=== PATIENT | male | born 1940 | race Caucasian/White ===

== ENCOUNTER 2017-01-10 09:24 | Outpatient (CLI) | payer MEDICARE, OTHER | END 2017-01-10 09:25 | disposition home or self-care (01) | DX: I10 Essential (primary) hypertension (principal); Z12.5 Encounter for screening for malignant neoplasm of prostate; E78.5 Hyperlipidemia, unspecified | CPT/HCPCS: 36415; 80053; 80061; G0103 ==

== ENCOUNTER 2017-04-09 08:14 | Outpatient (CLI) | payer MEDICARE, OTHER | END 2017-04-09 08:15 | disposition home or self-care (01) | DX: N28.9 Disorder of kidney and ureter, unspecified (principal) ==

== ENCOUNTER 2018-04-08 10:16 | Outpatient (CLI) | payer MEDICARE, OTHER ==
--- NOTE | 2018-04-08 10:55 | XRAY Report ---
THREE-VIEW BILATERAL HANDS: 04/08/2018 CLINICAL INDICATION: Bilateral pain. FINDINGS: AP, lateral and oblique views of the bilateral hands demonstrate osteoarthritic changes, with erosive characteristics, worst in the distal interphalangeal joint of the right middle finger. There is a flexion deformity of the left ring finger. There is no evidence of acute fracture. No radiopaque foreign body is seen in the soft tissues. IMPRESSION: EROSIVE OSTEOARTHRITIS. TD: 04/08/2018 10:54
== END 2018-04-08 10:17 | disposition home or self-care (01) ==
LOC: DI.S 10:16
PROVIDERS: ATTEND Nurse Practitioner Family
DX: M79.643 Pain in unspecified hand (principal); M15.4 Erosive (osteo)arthritis; I10 Essential (primary) hypertension; E78.5 Hyperlipidemia, unspecified; R73.09 Other abnormal glucose; Z12.5 Encounter for screening for malignant neoplasm of prostate; M10.9 Gout, unspecified
CPT/HCPCS: 36415; 73130; 80053; 80061; 83036; 84443; 84550; 85025; G0103; 83721; 84153

== ENCOUNTER 2018-04-08 10:55 | Outpatient (CLI) | payer MEDICARE, OTHER ==
[2018-04-08 17:38] LABS: BASOPHILS # (AUTO) 0.1 10^3/uL (0.0-0.1); BASOPHILS % (AUTO) 0.9 %; EOSINOPHILS % (AUTO) 0.6 %; LYMPHOCYTES % (AUTO) 14.8 %; MEAN CORPUSCULAR HEMOGLOBIN 34.7 pg (27.0-31.0); MEAN CORPUSCULAR HGB CONC 33.7 g/dL (32.0-36.0); MEAN CORPUSCULAR VOLUME 102.9 fL (80.0-94.0); MEAN PLATELET VOLUME 8.8 fL (7.4-11.4); MONOCYTES # (AUTO) 0.7 10^3/uL (0.0-1.0); MONOCYTES % (AUTO) 9.9 %; NEUTROPHILS % (AUTO) 73.8 %; PLT - PLATELET COUNT 233 10^3/uL (130-450); RED BLOOD COUNT 3.76 10^6/uL (4.70-6.10); WHITE BLOOD COUNT 6.7 x10^3/uL (4.8-10.8)
[2018-04-08 18:06] LABS: HB2 TOTAL 14.6 g/dL; HEMOGLOBIN A1C 0.6 g/dL; HEMOGLOBIN A1C % 5.9 % (4.6-6.2)
[2018-04-08 18:11] LABS: ALBUMIN 3.8 g/dL (3.2-5.5); ALBUMIN/GLOBULIN RATIO 0.9 (1.0-2.2); ALKALINE PHOSPHATASE 74 IU/L (42-121); ALT ALANINE AMINOTRANSFERASE 31 IU/L (10-60); AST ASPARTATE AMINOTRANSFERASE 28 IU/L (10-42); BUN - BLOOD UREA NITROGEN 25 mg/dL (6-20); CALCIUM 9.3 mg/dL (8.5-10.3); CARBON DIOXIDE - CO2 27 mmol/L (21-32); CHLORIDE 100 mmol/L (101-111); CHOL/HDL RATIO 3.3 (<5.0); CHOLESTEROL 127 mg/dL; CREATININE 1.3 mg/dL (0.6-1.2); GFR - MDRD 54 (>89); GLUCOSE 103 mg/dL (70-100); HDL CHOLESTEROL 38 mg/dL; LDL CHOLESTEROL,CALCULATED 71 mg/dL; LDL/HDL RATIO 1.9 (<3.6); SODIUM 137 mmol/L (135-145); TOTAL PROTEIN 7.9 g/dL (6.7-8.2); URIC ACID 5.8 mg/dL (2.6-7.2); VLDL CHOLESTEROL 18 mg/dL
== END 2018-04-08 10:56 | disposition home or self-care (01) ==
LOC: LAB.F 10:55
PROVIDERS: ATTEND Nurse Practitioner Family
DX: I10 Essential (primary) hypertension (principal); R73.09 Other abnormal glucose; Z12.5 Encounter for screening for malignant neoplasm of prostate; E78.5 Hyperlipidemia, unspecified; M10.9 Gout, unspecified
CPT/HCPCS: 36415; 80053; 80061; 83036; 83721; 84153; 84443; 84550; 85025

== ENCOUNTER 2019-04-02 08:05 | Outpatient (CLI) | payer MEDICARE ==
[2019-04-02 10:40] LABS: BASOPHILS % (AUTO) 0.7 %; EOSINOPHILS # (AUTO) 0.2 10^3/uL (0.0-0.7); EOSINOPHILS % (AUTO) 2.7 %; HGB - HEMOGLOBIN 12.9 g/dL (14.0-18.0); LYMPHOCYTES # (AUTO) 1.3 10^3/uL (1.5-3.5); LYMPHOCYTES % (AUTO) 22.2 %; MEAN CORPUSCULAR HEMOGLOBIN 34.6 pg (27.0-31.0); MEAN CORPUSCULAR HGB CONC 33.9 g/dL (32.0-36.0); MEAN PLATELET VOLUME 8.2 fL (7.4-11.4); MONOCYTES # (AUTO) 0.5 10^3/uL (0.0-1.0); MONOCYTES % (AUTO) 9.3 %; NEUTROPHILS # (AUTO) 3.8 10^3/uL (1.5-6.6); NEUTROPHILS % (AUTO) 65.1 %; PLT - PLATELET COUNT 224 10^3/uL (130-450); RED BLOOD COUNT 3.75 10^6/uL (4.70-6.10); RED CELL DISTRIBUTION WIDTH 14.2 % (12.0-15.0); WHITE BLOOD COUNT 5.8 x10^3/uL (4.8-10.8)
[2019-04-02 10:41] LABS: ALBUMIN/GLOBULIN RATIO 1.1 (1.0-2.2); ALKALINE PHOSPHATASE 71 IU/L (42-121); ALT ALANINE AMINOTRANSFERASE 30 IU/L (10-60); AST ASPARTATE AMINOTRANSFERASE 29 IU/L (10-42); BILIRUBIN,TOTAL 0.8 mg/dL (0.2-1.0); BUN - BLOOD UREA NITROGEN 28 mg/dL (6-20); CALCIUM 9.2 mg/dL (8.5-10.3); CARBON DIOXIDE - CO2 29 mmol/L (21-32); CHLORIDE 98 mmol/L (101-111); CHOL/HDL RATIO 3.1 (<5.0); CHOLESTEROL 132 mg/dL; CREATININE 1.4 mg/dL (0.6-1.2); GFR - MDRD 49 (>89); GLUCOSE 107 mg/dL (70-100); HDL CHOLESTEROL 42 mg/dL; LDL CHOLESTEROL,CALCULATED 71 mg/dL; LDL/HDL RATIO 1.7 (<3.6); SODIUM 138 mmol/L (135-145); TOTAL PROTEIN 7.7 g/dL (6.7-8.2); VLDL CHOLESTEROL 19 mg/dL
[2019-04-02 10:44] LABS: HB2 TOTAL 13.9 g/dL; HEMOGLOBIN A1C 0.6 g/dL; HEMOGLOBIN A1C % 6.1 % (4.6-6.2)
== END 2019-04-02 08:06 | disposition home or self-care (01) ==
LOC: LAB.F 08:05
PROVIDERS: ATTEND Nurse Practitioner Family
DX: I10 Essential (primary) hypertension (principal); E78.5 Hyperlipidemia, unspecified; Z13.1 Encounter for screening for diabetes mellitus; Z12.5 Encounter for screening for malignant neoplasm of prostate; M10.9 Gout, unspecified
CPT/HCPCS: 36415; 80061; 83036; 84550; G0103; 80053; 83721; 84153; 84443; 85025

== ENCOUNTER 2019-04-05 08:00 | Outpatient (CLI) | payer MEDICARE | END 2019-04-05 23:59 | disposition home or self-care (01) | LOC: LAB.S 08:00 | PROVIDERS: ATTEND Nurse Practitioner Family | DX: D53.9 Nutritional anemia, unspecified (principal); Z79.899 Other long term (current) drug therapy | CPT/HCPCS: 36415; 82607; 82746; 82977 ==

== ENCOUNTER 2021-03-07 11:46 | Outpatient (CLI) | payer MEDICARE ==
[2021-03-07 14:28] LABS: BASOPHILS # (AUTO) 0.1 10^3/uL (0.0-0.1); BASOPHILS % (AUTO) 0.8 %; EOSINOPHILS # (AUTO) 0.1 10^3/uL (0.0-0.7); EOSINOPHILS % (AUTO) 0.8 %; HCT - HEMATOCRIT 37.9 % (42.0-52.0); HGB - HEMOGLOBIN 12.8 g/dL (14.0-18.0); LYMPHOCYTES # (AUTO) 1.1 10^3/uL (1.5-3.5); LYMPHOCYTES % (AUTO) 18.2 %; MEAN CORPUSCULAR HGB CONC 33.8 g/dL (32.0-36.0); MEAN CORPUSCULAR VOLUME 103.6 fL (80.0-94.0); MEAN PLATELET VOLUME 10.4 fL (7.4-11.4); MONOCYTES # (AUTO) 0.7 10^3/uL (0.0-1.0); MONOCYTES % (AUTO) 11.2 %; NEUTROPHILS # (AUTO) 4.1 10^3/uL (1.5-6.6); NEUTROPHILS % (AUTO) 68.8 %; PLT - PLATELET COUNT 217 10^3/uL (130-450); RED BLOOD COUNT 3.66 10^6/uL (4.70-6.10); RED CELL DISTRIBUTION WIDTH 13.1 % (12.0-15.0)
[2021-03-07 15:47] LABS: THYROID STIMULATING HORMONE 2.58 uIU/mL (0.34-5.60)
[2021-03-07 15:52] LABS: CREATININE,URINE 68.4 mg/dL; MICROALBUM/CREATININE RATIO,UR 24.9 ug/mg (<30.0); MICROALBUMIN,URINE 1.7 mg/dL (0-300.0)
[2021-03-07 16:08] LABS: ALBUMIN 4.3 g/dL (3.2-5.5); ALBUMIN/GLOBULIN RATIO 1.1 (1.0-2.2); ALKALINE PHOSPHATASE 77 IU/L (42-121); ALT ALANINE AMINOTRANSFERASE 22 IU/L (10-60); AST ASPARTATE AMINOTRANSFERASE 21 IU/L (10-42); BILIRUBIN,TOTAL 0.9 mg/dL (0.2-1.0); BUN - BLOOD UREA NITROGEN 32 mg/dL (6-20); CALCIUM 9.2 mg/dL (8.5-10.3); CARBON DIOXIDE - CO2 26 mmol/L (21-32); CHLORIDE 99 mmol/L (101-111); CHOL/HDL RATIO 2.8 (<5.0); CHOLESTEROL 136 mg/dL; CREATININE 1.5 mg/dL (0.6-1.2); GFR - MDRD 45 (>89); GLUCOSE 101 mg/dL (70-100); HDL CHOLESTEROL 48 mg/dL; LDL CHOLESTEROL,CALCULATED 69 mg/dL; LDL/HDL RATIO 1.4 (<3.6); POTASSIUM 3.5 mmol/L (3.5-5.0); SODIUM 136 mmol/L (135-145); TOTAL PROTEIN 8.2 g/dL (6.7-8.2); TRIGLYCERIDES 96 mg/dL; VLDL CHOLESTEROL 19 mg/dL
--- NOTE | 2021-03-07 17:19 | XRAY Report ---
PROCEDURE: Hip w/Pelvis 2-3V LT INDICATIONS: LEFT HIP PAIN TECHNIQUE: AP pelvis with lateral view(s) of the left hip(s). COMPARISON: None. FINDINGS: Bones: No acute fractures or dislocations. Pelvic ring appears intact. No suspicious bony lesions. There are severe degenerative changes of the left hip joint with complete joint space loss superiorl y. There is subchondral sclerosis involving both sides of the left hip joint with associated subchond ral cystic change of the femoral side of the joint. Prominent marginal osteophyte formation. There ar e also mild-moderate degenerative changes of the right hip. Lower lumbar spondylosis. Soft tissues: The visualized bowel gas pattern is normal. No suspicious soft tissue calcifications. Multiple surgical clips project over the pelvic rim. IMPRESSION: 1. Severe osteoarthrosis of the left hip. 2. Mild-moderate osteoarthrosis of the right hip. Reviewed by: Zach Meng MD on 03/07/2021 5:17 PM PDT Approved by: Zach Meng MD on 03/07/2021 5:17 PM PDT Station ID: [id number]
[2021-03-07 19:44] LABS: ESTIMATED AVERAGE GLUCOSE 126 mg/dL (70-100)
== END 2021-03-07 11:47 | disposition home or self-care (01) ==
LOC: DI.S 11:46
PROVIDERS: ATTEND Physician Assistant
DX: M16.0 Bilateral primary osteoarthritis of hip (principal); I10 Essential (primary) hypertension; D64.9 Anemia, unspecified; E78.5 Hyperlipidemia, unspecified; Z79.899 Other long term (current) drug therapy
CPT/HCPCS: 36415; 80053; 80061; 82043; 82570; 83036; 83721; 84443; 85025

== ENCOUNTER 2021-09-28 09:04 | Outpatient (CLI) | payer MEDICARE ==
[2021-09-28 15:59] LABS: CALCIUM 9.8 mg/dL (8.5-10.3); CREATININE 1.6 mg/dL (0.6-1.2); POTASSIUM 4.1 mmol/L (3.5-5.0)
== END 2021-09-28 09:05 | disposition home or self-care (01) ==
LOC: LAB.S 09:04
PROVIDERS: ATTEND Nurse Practitioner Family
DX: N18.9 Chronic kidney disease, unspecified (principal)
CPT/HCPCS: 36415; 80048

== ENCOUNTER 2021-10-15 08:33 | Outpatient (CLI) | payer MEDICARE ==
[2021-10-15 15:29] LABS: BILIRUBIN,URINE NEGATIVE (NEGATIVE); GLUCOSE, URINE (UA) NEGATIVE (NEGATIVE); KETONES,URINE (UA) NEGATIVE (NEGATIVE); LEUKOCYTE ESTERASE, URINE MODERATE (NEGATIVE); NITRITE,URINE NEGATIVE (NEGATIVE); OCCULT BLOOD,URINE NEGATIVE (NEGATIVE); PROTEIN,URINE NEGATIVE (NEGATIVE); UROBILINOGEN,URINE 0.2 (NORMAL) E.U./dL (NORMAL)
[2021-10-15 15:30] LABS: ALBUMIN 3.7 g/dL (3.2-5.5); ALBUMIN/GLOBULIN RATIO 0.9 (1.0-2.2); BILIRUBIN,TOTAL 0.7 mg/dL (0.2-1.0); CALCIUM 9.2 mg/dL (8.5-10.3); CREATININE 1.5 mg/dL (0.6-1.2); POTASSIUM 3.8 mmol/L (3.5-5.0); TOTAL PROTEIN 7.8 g/dL (6.7-8.2)
[2021-10-15 15:31] LABS: CLARITY,URINE HAZY (CLEAR)
[2021-10-15 15:57] LABS: BACTERIA,URINE Many /HPF (None Seen); RBC,URINE None Seen /HPF (0-5); SQUAMOUS EPITHELIAL CELL,UR NONE SEEN (<= Few); WBC,URINE >25 /HPF (0-3)
== END 2021-10-15 08:34 | disposition home or self-care (01) ==
LOC: LAB.S 08:33
PROVIDERS: ATTEND Internal Medicine
DX: N18.9 Chronic kidney disease, unspecified (principal); D53.9 Nutritional anemia, unspecified
CPT/HCPCS: 36415; 80053; 81001; 83540; 84466; 87086

== ENCOUNTER 2021-10-30 08:13 | Outpatient (CLI) | payer MEDICARE ==
[2021-10-30 15:16] LABS: BILIRUBIN,URINE NEGATIVE (NEGATIVE); GLUCOSE, URINE (UA) NEGATIVE (NEGATIVE); KETONES,URINE (UA) NEGATIVE (NEGATIVE); LEUKOCYTE ESTERASE, URINE NEGATIVE (NEGATIVE); NITRITE,URINE NEGATIVE (NEGATIVE); OCCULT BLOOD,URINE NEGATIVE (NEGATIVE); PROTEIN,URINE NEGATIVE (NEGATIVE); UROBILINOGEN,URINE 0.2 (NORMAL) E.U./dL (NORMAL)
[2021-10-30 15:44] LABS: BACTERIA,URINE None Seen /HPF (None Seen); CLARITY,URINE CLEAR (CLEAR); RBC,URINE None Seen /HPF (0-5); SQUAMOUS EPITHELIAL CELL,UR FEW Squamous (<= Few); WBC,URINE 0-3 /HPF (0-3)
== END 2021-10-30 08:14 | disposition home or self-care (01) ==
LOC: LAB.S 08:13
PROVIDERS: ATTEND Internal Medicine
DX: N30.00 Acute cystitis without hematuria (principal)
CPT/HCPCS: 81001; 87086

== ENCOUNTER 2022-09-27 11:03 | Outpatient (CLI) | payer MEDICARE ==
[2022-09-27 14:48] LABS: BASOPHILS # (AUTO) 0.1 10^3/uL (0.0-0.1); BASOPHILS % (AUTO) 0.5 %; EOSINOPHILS # (AUTO) 0.1 10^3/uL (0.0-0.7); EOSINOPHILS % (AUTO) 0.6 %; HCT - HEMATOCRIT 37.2 % (42.0-52.0); HGB - HEMOGLOBIN 12.1 g/dL (14.0-18.0); LYMPHOCYTES # (AUTO) 0.8 10^3/uL (1.5-3.5); LYMPHOCYTES % (AUTO) 8.3 %; MEAN CORPUSCULAR HGB CONC 32.5 g/dL (32.0-36.0); MEAN CORPUSCULAR VOLUME 104.5 fL (80.0-94.0); MEAN PLATELET VOLUME 9.8 fL (7.4-11.4); MONOCYTES % (AUTO) 9.9 %; NEUTROPHILS # (AUTO) 8.1 10^3/uL (1.5-6.6); NEUTROPHILS % (AUTO) 80.3 %; PLT - PLATELET COUNT 299 10^3/uL (130-450); RED BLOOD COUNT 3.56 10^6/uL (4.70-6.10); RED CELL DISTRIBUTION WIDTH 13.3 % (12.0-15.0)
[2022-09-27 15:09] LABS: ALBUMIN 3.5 g/dL (3.2-5.5); ALBUMIN/GLOBULIN RATIO 0.8 (1.0-2.2); BILIRUBIN,TOTAL 0.6 mg/dL (0.2-1.0); CALCIUM 9.6 mg/dL (8.5-10.3); CREATININE 1.6 mg/dL (0.6-1.2); POTASSIUM 4.3 mmol/L (3.5-5.0); TOTAL PROTEIN 7.8 g/dL (6.7-8.2)
== END 2022-09-27 11:04 | disposition home or self-care (01) ==
LOC: LAB.S 11:03
PROVIDERS: ATTEND Emergency Medicine
DX: R10.11 Right upper quadrant pain (principal)
CPT/HCPCS: 36415; 80053; 83690; 85025

== ENCOUNTER 2022-10-07 08:13 | Outpatient (CLI) | payer MEDICARE ==
--- NOTE | 2022-10-07 11:15 | Ultrasound Report ---
PROCEDURE: Abdomen Limited INDICATIONS: RIGHT UPPER QUAD PAIN TECHNIQUE: Real-time focused scanning was performed of the abdomen, with image documentation. COMPARISON: None FINDINGS: Gallbladder is normal in appearance without evidence of cholelithiasis or gallbladder wall thickening. Gallbladder wall measures 2.2 mm in maximal dimension. No sonographic Alanis sign is present. The liver echo texture is somewhat heterogeneous in appearance without evidence for focal lesion seen . Portal venous flow is hepatopedal at 57.5 cm/s. Biliary tree is unremarkable. Common hepatic duct is normal at 2.2 mm and common bile duct is normal at 2.8 mm Visualized portions of the pancreas, spleen, and IVC are unremarkable. Right kidney measures 9.2 cm in maximal dimension with multiple simple cysts present the largest yolanda uring 1.2 cm. IMPRESSION: 1. Normal-appearing gallbladder. 2. Small simple cyst involving the right patient's right kidney the largest measures 1.2 cm in rik l dimension. Reviewed by: Pako Almanzar MD on 10/07/2022 11:14 AM PST Approved by: Pako Almanzar MD on 10/07/2022 11:14 AM PST Station ID: [id number]
== END 2022-10-07 08:14 | disposition home or self-care (01) ==
LOC: DI 08:13
PROVIDERS: ATTEND Emergency Medicine
DX: R10.11 Right upper quadrant pain (principal); N28.1 Cyst of kidney, acquired

== ENCOUNTER 2022-10-20 08:41 | Outpatient (CLI) | payer MEDICARE | END 2022-10-20 08:42 | disposition short-term general hospital (02) | LOC: EMS 08:41 | DX: R53.1 Weakness (principal); R41.0 Disorientation, unspecified; R29.810 Facial weakness; R47.81 Slurred speech | CPT/HCPCS: A0425; A0429 ==

== ENCOUNTER 2022-12-11 02:35 | Outpatient (CLI) | payer MEDICARE | END 2022-12-11 02:36 | disposition E | LOC: EMS 02:35 | DX: I46.9 Cardiac arrest, cause unspecified (principal) ==